=== PATIENT | male | born 1985 | race Caucasian/White ===

== ENCOUNTER → 2017-09-05 | Outpatient (CLI) | payer BC ==
[2017-09-05 08:56] LABS: BASO % 0.5 % (0.0-1.0); EOS # 0.1 10^3/uL (0.0-0.50); EOS % 2.9 % (0.0-3.0); HEMATOCRIT 46.2 % (42.0-52.0); HEMOGLOBIN 16.1 g/dl (14.0-18.0); IMMATURE GRANULOCYTE % 0.5 % (0-0); LYMPH # 1.4 10^3/uL (1.5-4.5); LYMPH % 32.5 % (24.0-44.0); MEAN CORPUSCULAR HEMOGLOBIN 29.9 pg (27.0-33.0); MEAN CORPUSCULAR HGB CONC 34.8 g/dl (32.0-36.5); MEAN CORPUSCULAR VOLUME 85.9 fl (80.0-96.0); MONO # 0.3 10^3/uL (0.0-0.8); MONO % 7.7 % (0.0-5.0); NEUTROPHILS # 2.3 10^3/uL (1.8-7.7); NEUTROPHILS % 55.9 % (36.0-66.0); PLATELET COUNT, AUTOMATED 229 10^3/uL (150-450); RED BLOOD COUNT 5.38 10^6/uL (4.30-6.10); RED CELL DISTRIBUTION WIDTH 11.9 % (11.5-14.5); WHITE BLOOD COUNT 4.2 10^3/uL (4.0-10.0)
[2017-09-05 09:35] LABS: ALBUMIN 4.3 GM/DL (3.2-5.2); ALBUMIN/GLOBULIN RATIO 1.65 (1.00-1.93); ALKALINE PHOSPHATASE 59 U/L (45-117); ALT/SGPT 48 U/L (12-78); ANION GAP 8 MEQ/L (8-16); AST/SGOT 23 U/L (7-37); BLOOD UREA NITROGEN 17 MG/DL (7-18); CALCIUM LEVEL 9.1 MG/DL (8.5-10.1); CARBON DIOXIDE LEVEL 28 MEQ/L (21-32); CHLORIDE LEVEL 106 MEQ/L (98-107); CHOLESTEROL LEVEL 152 MG/DL (<200); CHOLESTEROL RISK RATIO 2.666 (<5); CREATININE FOR GFR 1.25 MG/DL (0.70-1.30); FREE T4 1.02 NG/DL (0.76-1.46); GLOMERULAR FILTRATION RATE > 60.0 (>60); GLUCOSE, FASTING 93 MG/DL (70-105); HDL CHOLESTEROL 57 MG/DL (>40); LDL CHOLESTEROL 83.6 MG/DL (<100); NON-HDL-C 95 MG/DL; POTASSIUM SERUM 4.4 MEQ/L (3.5-5.1); SODIUM LEVEL 142 MEQ/L (136-145); TOTAL PROTEIN 6.9 GM/DL (6.4-8.2); TRIGLYCERIDES LEVEL 57 MG/DL (<150)
== END ==
LOC: M LAB 08:27
DX: B35.1 Tinea unguium (principal); R53.83 Other fatigue
CPT/HCPCS: 84403

== ENCOUNTER → 2018-10-21 | Outpatient (CLI) | payer BC ==
--- NOTE | 2018-10-21 16:27 | REP ---
LUMBAR SPINE, THREE VIEWS: HISTORY: Back pain. There is no acute fracture or subluxation. The L3-4 through L5-S1 intervertebral discs are decreased in height consistent with disc degeneration. IMPRESSION: Degenerative change as described above. Electronically Signed by Kwasi Joseph MD 10/21/2018 04:36 P
== END ==
LOC: M WUC 15:13
PROVIDERS: ATTEND Physician Assistant
DX: M54.5 Low back pain (principal); M51.36 Other intervertebral disc degeneration, lumbar region

== ENCOUNTER → 2021-09-13 | Outpatient (CLI) | payer BC | LOC: M WUC 13:20 | DX: M54.50 Low back pain, unspecified (principal) ==